=== PATIENT | female | born 1955 | race Caucasian/White ===

== ENCOUNTER → 2020-05-17 | Outpatient (REF) | payer MEDICARE | LOC: M LAB REF 09:09 | PROVIDERS: ATTEND Radiology Diagnostic Radiology | DX: N64.9 Disorder of breast, unspecified (principal) ==

== ENCOUNTER → 2020-09-09 | Outpatient (CLI) | payer MEDICARE ==
[~2020-09-09] MED LIST: CARV3.12; CHLO125TA PO; CRES5TAB PO; IRBE150T7 PO
== END ==
LOC: M LABSMTC 10:50
PROVIDERS: ATTEND Anesthesiology
DX: Z01.812 Encounter for preprocedural laboratory examination (principal); Z20.822 Contact with and (suspected) exposure to COVID-19

== ENCOUNTER 2020-09-14 10:27 | Day surgery (SDC) | payer MEDICARE ==
[~2020-09-14] VITALS: Ht 154.9 cm; Wt 84.7 kg
[~2020-09-14 10:27] MED LIST changes: +HEPARIN SOD (PORCINE) 5000UNITS/ML 1ML VIAL/SYRINGE SQ ONE; +LACRILUBE (AKWA TEARS) OPHTH OINT 3.5 GM As Ordered ONE; +LR 1,000 ML IV ONE; +ceFAZolin SOD 2 GM in IV 1 EA IV ONE
[2020-09-14] MEDS ORDERED: VITA500C24 PO (11:04)
[2020-09-14] MEDS ORDERED: D31000TA2 PO (11:04)
[2020-09-14] MEDS ORDERED: BUPIVACAINE HCL 0.25% 10ML VIAL As Ordered ONE (12:04)
[2020-09-14] MEDS ORDERED: LIDOCAINE 1% MDV 20ML VIAL As Ordered ONE (12:04)
[2020-09-14] MEDS ORDERED: propofoL 200 MG/20 ML VIAL As Ordered ONE ×2 (12:35→12:46)
[2020-09-14] MEDS ORDERED: SUGAMMADEX SODIUM 500 MG/5 ML VIAL (BRIDION) As Ordered ONE (12:35)
[2020-09-14] MEDS ORDERED: LIDOCAINE 2% 100MG/5ML SDV (FOR ANES.) As Ordered ONE (12:35)
[2020-09-14] MEDS ORDERED: dexameTHASONE 4 MG/ML 1ML VIAL (J1100 PER 1MG) As Ordered ONE (12:35)
[2020-09-14] MEDS ORDERED: METOCLOPRAMIDE INJ 10MG/2ML VIAL (J2765 PER 1) As Ordered ONE (12:35)
[2020-09-14] MEDS ORDERED: ONDANSETRON 4MG/2ML VIAL As Ordered ONE ×2 (12:35→14:20)
[2020-09-14] MEDS ORDERED: ROCURONIUM BROMIDE 50 MG/5 ML VIAL As Ordered ONE (12:35)
[2020-09-14] MEDS ORDERED: MIDAZOLAM INJ 2MG/2ML VIAL (J2250 PER 1MG) As Ordered ONE (12:35)
[2020-09-14] MEDS ORDERED: fentaNYL 250 MCG/5 ML INJECTION (J3010) As Ordered ONE (12:35)
[2020-09-14] MEDS ORDERED: ePHEDrine SULFATE 25 MG/5 ML(5MG/ML) SYRINGE As Ordered ONE (12:55)
[2020-09-14] MEDS ORDERED: ULTR50TA8 PO (14:10)
[2020-09-14] MEDS ORDERED: oxyCODONE 5MG TAB As Ordered ONE (14:20)
[2020-09-14] MEDS ORDERED: ONDANSETRON 4MG/2ML VIAL IV PRN (14:30)
[2020-09-14] MEDS ORDERED: fentaNYL 100 MCG/2 ML INJECTION (J3010) IV PRN (14:30)
[2020-09-14] MEDS ORDERED: LR 1,000 ML IV SCH (14:30)
[2020-09-14] MEDS ORDERED: oxyCODONE 5MG TAB PO PRN (14:30)
--- NOTE | 2020-09-14 14:48 | REP ---
INDICATION: RIGHT BREAST EXCISIONAL BIOPSY WIT INTRAOP WIRE. COMPARISON: Comparison mammography 04/21/2020.. TECHNIQUE: Sonographic guidance. FINDINGS: Sonographic guidance is provided to Dr. Marin who a performed needle localization wire placements x2 in the right breast. IMPRESSION: Sonographic guidance. <Electronically signed by Corby áVsquez > 09/14/20 0306
[2020-09-14 16:24] VITALS: BP 158/74
--- NOTE | 2020-09-14 16:43 | REP ---
INDICATION: RIGHT BREAST EXCISIONAL BIOPSY WIT INTRAOP WIRE. COMPARISON: Comparison mammography 27 April 2020 and 21 April 2020.. TECHNIQUE: A single specimen radiograph and a specimen photograph are presented. FINDINGS: Specimen radiography demonstrates a spiculated 1.4 cm mass centrally located in the larger specimen transected by localizer wire. The smaller specimen demonstrates some needle biopsy marker clip eccentrically located in the mass along with another localizer wire. IMPRESSION: Spiculated mass seen in 1 of the 2 specimens. Needle biopsy marker clip is located in the other specimen. <Electronically signed by Corby Vásquez > 09/14/20 1468
--- NOTE | 2020-09-16 22:43 | ROOPDOC ---
[facility] Report Of Operation Report of Operation DATE OF PROCEDURE: 09/14/20 PREPROCEDURE DIAGNOSES: Right breast atypical proliferation POSTPROCEDURE DIAGNOSES: same PROCEDURE: Right breast excisional biopsy x 2 and right breast intraoperative wire placement x 2 SURGEON: Zheng Walden ANESTHESIA: general ESTIMATED BLOOD LOSS: Approximately 15 mL. COMPLICATIONS: no REMARKS: hematoma/ original bx site specimen contains somewhat spiculated mass and the wire. The hydromark clip was identified in different are of the breast DESCRIPTION OF PROCEDURE: INDICATIONS: Ms. Leatha Casarez is a 65-year-old woman who was found to have suspicious right breast calcifications on screening mammogram. Patient underwent Right breast Stereotactic biopsy at [facility] which was unfortunately complicated by moderate hematoma and clip dislodgement. Another clip was placed but was found to be in a location 2 cm inferior to the site of biopsy hence NOT marking the biopsy site. Pathology came back as atypical proliferative lesion. Right breast excisional biopsy with intraoperative wire placement was offered to the patient due to atypia found in the specimen. She was medically cleared for surgery by her primary care doctor. Risks and possible complications of surgical procedure including bleeding, infection and injury to surrounding structures were explained to the patient and she wished to proceed. Consent was signed. My initials were placed on the operative site. Subcutaneous injection of 5000 units of heparin was done in Preop. DETAILS: Patient was taken to the operating room and placed on the operating room table. A sign in was called stating patients name, date of and the procedure to be done. Preoperative antibiotics were infused. Smooth induction of general anesthesia was done. Patients hands were extended on arm rests. Care was taken not to over extend the arms. Pillow was placed under the knees and a foam was placed under the heels. Sequential compression devices were placed and assured to function correctly. Procedure was started with right breast intraop wire localization. Appropriate time out was done and patients name, date of , and the procedure to be done were confirmed. Right breast was cleaned by me. Intraoperative ultrasound was used again to confirm location of the Hydromark clip and the location of the postbiopsy hematoma. Location of the clip and the location of hematoma were marked on the skin as well. Two 21 G K[place]ans Breast Lesion Localization Needle was used to place 25 cm wire. One wire was placed through the hematoma and the other was placed next to the Hydromark clip. The ends of the wires were passed slightly distal to the targets. The images were captured confirming adequate placement of the localizing wires. Balloon Maker assisted with the wire placement. Next, patients right breast and axilla were prepped and draped in the usual fashion. Care was taken not to displace the wires. Appropriate time out was done again prior second part of the procedure. Patients name, date of , and the procedure to be done were confirmed. Next, local anesthetic using 1% lidocaine and 0.25 % Marcaine 50/50 mix was injected at the site of planned periareolar incision. The incision was made with the scalpel. Subcutaneous skin flaps were raised and the guide wires were carefully pulled into the wound. Our attention was first focused on the site of hematoma. Dissection was carries along the wire until the previously marked on the skin area of target lesion location was encountered. At this point, wider excision of the tissue surrounding the wire was done. Intraopeative sonography was used to guide the dissection toward the hypoechoic lesion. Upon palpation, this lesion apparated to be hard. This was excised carefully. The end of the wire was identified with palpation. The excisional biopsy specimen was carefully removed from the breast keeping its proper orientation and moved to the back table where margins were marked with the surgical inking kit following the standard colors recommendations. Specimen was then placed on the grid and placed in [employer] [facility]. The image revealed the wire and somewhat spiculated mass. The specimen measures 4x3 cm. The specimen was labeled with patients name and right breast solidified hematoma/ biopsy site and sent to pathology. Next, our attention was turned toward the second wire marking the site of misplaced Hydromark. This was more lateral, inferior and superficial to the hematoma site. Intraoperative US was used to localize the site of Hydromark. Dissection was carried along the wire until the about 1 cm distance from the Hydromark. At that point wider dissection was done. Upon dissection- Hydromark clip become visible and was removed from the specimen to avoid misplacement. Silk stitch was placed at the clip location. An area of 2.6 x1.5 cm was excised at the site of Hydromark clip. This second specimen was then placed on the grid and placed in [employer] [facility]. Hydromark clip was placed at the site of marking suture. The image revealed the wire and the Hydromark. The specimen measures. The specimen was l abeled with patients name and right breast clip site and sent to pathology Next, the wound was irrigated thoroughly and adequate hemostasis was assured. Additional local anesthetic was injected into surrounding tissues. space was approximated with 2-0 Vicryl. The dermis was closed with 3-0 Vicryl and skin was closed with 4-0 Monocryl. Surgical glue was placed over the incision. Patient emerged from the anesthesia without any problems. Fluffs were placed over the operative site and patients chest was wrapped snuggly in the HARSHA wrap. Sponge and instrument counts were done and were correct. Patient tolerated procedure well and was taken to recovery unit in stable condition. ZHENG WALDEN DO Sep 16, 2020 22:43
== END 2020-09-14 16:31 | disposition home or self-care (01) ==
LOC: M SDC 10:27
PROVIDERS: ATTEND Surgery
DX: N60.89 Other benign mammary dysplasias of unspecified breast (principal); R92.8 Other abnormal and inconclusive findings on diagnostic imaging of breast; N64.89 Other specified disorders of breast; E78.00 Pure hypercholesterolemia, unspecified; I10 Essential (primary) hypertension; I49.3 Ventricular premature depolarization; Z78.0 Asymptomatic menopausal state; Z79.899 Other long term (current) drug therapy; Z80.3 Family history of malignant neoplasm of breast; Z87.440 Personal history of urinary (tract) infections; Z88.8 Allergy status to other drugs, medicaments and biological substances; Z90.710 Acquired absence of both cervix and uterus
CPT/HCPCS: 19083; 19084; 36415; 86850; 86870; 86900; 86901; 88305; J0690; J1100; J1644; J2250; J2405; J2765; J3010

== ENCOUNTER → 2020-11-22 | Outpatient (CLI) | payer MEDICARE ==
[~2020-11-22] MED LIST changes: +D31000TA2 PO; -HEPARIN SOD (PORCINE) 5000UNITS/ML 1ML VIAL/SYRINGE SQ ONE; -LACRILUBE (AKWA TEARS) OPHTH OINT 3.5 GM As Ordered ONE; -LR 1,000 ML IV ONE; +PROHANCE 279.3MG/ML 15ML VIAL As Ordered ONE; +ULTR50TA8 PO; +VITA500C24 PO; -ceFAZolin SOD 2 GM in IV 1 EA IV ONE
--- NOTE | 2020-11-22 15:18 | REP ---
INDICATION: ATYPICAL HYPERPLASIA RT BREAST. Status post excisional biopsy right breast September 14, 2020. COMPARISON: Comparison mammography 21 April 2020. TECHNIQUE: Three [facility] MRI imaging was performed with a dedicated breast coil. Axial, coronal, and sagittal T1 and T2 weighted scans were obtained with and without fat saturation in the usual fashion. The study includes dynamically acquired post gadolinium-enhanced imaging with image subtraction. Maximum intensity projection and multi planar reformation imaging is included as well. This study is interpreted with the aid of [employer], an FDA approved computer aided detection (CAD) software program, on a dedicated breast MRI workstation. The gadolinium enhancement dose is 16 mL of intravenous ProHance. FINDINGS: There is a mild amount of fibroglandular tissue bilaterally corresponding with the mammographic pattern. There is minimal background parenchymal enhancement. There is no evidence of axillary lymphadenopathy or significant breast cystic change. High-resolution pre and post-contrast T1 and T2 weighted scans show no suspicious morphologic abnormality in either breast. Dynamically acquired sequential postcontrast images show no suspicious area of enhancement and washout kinetics in either breast to suggest malignancy. Subtraction images show no additional abnormality. There is a linearly aligned area of edematous tissue in the right breast upper medial quadrant post biopsy. IMPRESSION: BI-RADS category 2 benign bilateral breast MRI findings. <Electronically signed by Corby Vásquez > 11/22/20 0607
== END ==
LOC: M RAD 12:48
PROVIDERS: ATTEND Surgery
DX: N60.91 Unspecified benign mammary dysplasia of right breast (principal); Z91.89 Other specified personal risk factors, not elsewhere classified; N60.31 Fibrosclerosis of right breast; N60.32 Fibrosclerosis of left breast
CPT/HCPCS: A9576; C8908

== ENCOUNTER → 2020-11-29 | Outpatient (REF) | payer MEDICARE ==
[~2020-11-29] MED LIST changes: -PROHANCE 279.3MG/ML 15ML VIAL As Ordered ONE
[2020-11-29 13:32] LABS: APPEARANCE, URINE HAZY (CLEAR); BACTERIA, URINE AUTO 1+ (NEGATIVE); BILIRUBIN, URINE AUTO NEGATIVE (NEGATIVE); BLOOD, URINE BLOOD NEGATIVE (NEGATIVE); COLOR, URINE YELLOW (YELLOW); GLUCOSE, URINE (UA) AUTO NEGATIVE (NEGATIVE); KETONE, URINE AUTO NEGATIVE (NEGATIVE); LEUKOCYTE ESTERASE, URINE AUTO NEGATIVE (NEGATIVE); MUCUS, URINE SMALL (NEGATIVE); NITRITE, URINE AUTO NEGATIVE (NEGATIVE); PROTEIN, URINE AUTO NEGATIVE (NEGATIVE); RBC, URINE AUTO 11 /HPF (0-3); SPECIFIC GRAVITY URINE AUTO 1.015 (1.002-1.035); SQUAMOUS EPITHELIAL CELL UR AU 3 /HPF (0-6); UROBILINOGEN, URINE AUTO 0.2 mg/dL (0.0-2.0); WBC, URINE AUTO 1 /HPF (0-3)
== END ==
LOC: M SMT 12:54
PROVIDERS: ATTEND Nurse Practitioner Family
DX: N39.0 Urinary tract infection, site not specified (principal); R31.29 Other microscopic hematuria
CPT/HCPCS: 81001; 87086; 88108; G0463

== ENCOUNTER → 2021-01-15 | Outpatient (REF) | payer MEDICARE ==
[2021-01-15 14:22] LABS: APPEARANCE, URINE CLEAR (CLEAR); BACTERIA, URINE AUTO NEGATIVE (NEGATIVE); BILIRUBIN, URINE AUTO NEGATIVE (NEGATIVE); BLOOD, URINE BLOOD 1+ (NEGATIVE); COLOR, URINE STRAW (YELLOW); GLUCOSE, URINE (UA) AUTO NEGATIVE (NEGATIVE); KETONE, URINE AUTO NEGATIVE (NEGATIVE); LEUKOCYTE ESTERASE, URINE AUTO NEGATIVE (NEGATIVE); MUCUS, URINE SMALL (NEGATIVE); NITRITE, URINE AUTO NEGATIVE (NEGATIVE); PROTEIN, URINE AUTO NEGATIVE (NEGATIVE); RBC, URINE AUTO 0 /HPF (0-3); SPECIFIC GRAVITY URINE AUTO 1.005 (1.002-1.035); SQUAMOUS EPITHELIAL CELL UR AU 1 /HPF (0-6); UROBILINOGEN, URINE AUTO 0.2 mg/dL (0.0-2.0); WBC, URINE AUTO 0 /HPF (0-3)
== END ==
LOC: M SMT 13:01
PROVIDERS: ATTEND Urology
DX: R31.29 Other microscopic hematuria (principal)

== ENCOUNTER → 2021-06-25 | Outpatient (CLI) | payer MEDICARE | LOC: M WHC 10:01 | PROVIDERS: ATTEND Surgery | DX: N60.91 Unspecified benign mammary dysplasia of right breast (principal); Z91.89 Other specified personal risk factors, not elsewhere classified; Z80.3 Family history of malignant neoplasm of breast | CPT/HCPCS: 77066; G0279 ==

== ENCOUNTER → 2022-06-28 | Outpatient (CLI) | payer MEDICARE ==
[~2022-06-28] MED LIST changes: -D31000TA2 PO; +VITA100093 PO
== END ==
LOC: M WHC 07:53
PROVIDERS: ATTEND Nurse Practitioner Women's Health
DX: Z12.31 Encounter for screening mammogram for malignant neoplasm of breast (principal)

== ENCOUNTER → 2023-07-01 | Outpatient (CLI) | payer MEDICARE | LOC: M WHC 10:20 | PROVIDERS: ATTEND Nurse Practitioner Women's Health | DX: Z12.31 Encounter for screening mammogram for malignant neoplasm of breast (principal); R92.323 Mammographic fibroglandular density, bilateral breasts ==

== ENCOUNTER → 2024-07-07 | Outpatient (CLI) | payer MEDICARE ==
[~2024-07-07] MED LIST changes: +IRBE150T27 PO; -IRBE150T7 PO
== END ==
LOC: M WHC 12:35
PROVIDERS: ATTEND Physician Assistant
DX: Z12.31 Encounter for screening mammogram for malignant neoplasm of breast (principal); R92.313 Mammographic fatty tissue density, bilateral breasts; Z98.890 Other specified postprocedural states